=== PATIENT | female | born 1950 | race Caucasian/White ===

== ENCOUNTER → 2018-09-15 13:44 | Outpatient (CLI) | payer MEDICARE, MEDICAID, SELFPAY ==
--- NOTE | 2018-09-15 14:03 | VDLE_ITS ---
Reason For Study: LEG SWELLING RIGHT LEFT GSV is normal. CFV is compressible, spontaneous, phasic, CFV is compressible, spontaneous, phasic, competent, and demonstrates normal competent and demonstrates normal augmentation. augmentation. FV is compressible prox/mid FV distal, POP V,T/P trunk, PTV, PER Vand Soleus are dilated and non-compressible. Procedure Exam performed in department. A preliminary report was called and/or faxed to Dr. Hector. Interpretation Summary Acute deep vein thrombosis is noted in the right distal femoral vein. Acute deep vein thrombosis is noted in the right popliteal vein. Acute deep vein thrombosis is noted in the right tibio-peroneal trunk. Acute deep vein thrombosis is noted in the right posterior tibial vein. Acute deep vein thrombosis is noted in the right peroneal vein. Acute deep vein thrombosis is noted in the right soleus vein. The right common femoral vein and proximal/mid-femoral vein are patent and compressible. The right great saphenous vein is patent and compressible. Ordering Physician: Lb Hector Referring Physician: Lb Hector Performed By: Irene Person RVT
== END ==
PROVIDERS: Family Provider Physician Assistant Medical; PCP Physician Assistant Medical; Referring Provider Internal Medicine Pulmonary Disease; Visit Provider Internal Medicine Pulmonary Disease
DX: R60.0 Localized edema (principal)
CPT/HCPCS: 93971

== ENCOUNTER → 2022-02-28 | Outpatient (CLI) | payer MEDICARE, SELFPAY ==
--- NOTE | 2022-02-28 15:36 | RAD_ITS ---
STUDY: X-RAY CHEST REASON FOR EXAM: Female, 71 years old. DYSPNEA TECHNIQUE: AP and lateral. COMPARISON: None. FINDINGS: LINES/DEVICES: Indwelling central venous catheter with tip at the level of SVC/right atrial junction, port overlying the right chest. LUNGS: No consolidation. No pneumothorax. MEDIASTINUM: Aorta atherosclerotic. CARDIAC SILHOUETTE: Not enlarged. BONES AND SOFT TISSUES: Degenerative changes in the dorsal spine. RAD/Chest PA and Lateral IMPRESSION: No evidence of active intrathoracic disease. Love catheter as described. Electronically Signed: Dorota Bee MD at 4:31 EDT ,
== END | disposition home or self-care (01) ==
PROVIDERS: PCP Physician Assistant Medical; Referring Provider Internal Medicine Pulmonary Disease; Visit Provider Internal Medicine Pulmonary Disease
DX: I70.0 Atherosclerosis of aorta (principal); R06.00 Dyspnea, unspecified
CPT/HCPCS: 71046